=== PATIENT | female | born 1970 | race Caucasian/White ===

== ENCOUNTER → 2019-10-10 10:51 | Outpatient (CLI) | payer BC, SELFPAY ==
[2019-10-10 10:50] VITALS: BMI 21.6
--- NOTE | 2019-10-10 10:56 | RAD_ITS ---
STUDY: X-RAY - RIGHT ANKLE REASON FOR EXAM: Ankle pain. TECHNIQUE: 3 view(s) of the ankle. COMPARISON: None. FINDINGS: Normal visualized distal tibia and fibula. Normal medial and lateral malleoli. There is a subtle radiolucency in the medial talar dome. Normal visualized talus and calcaneus. There is a type II accessory navicular. The visualized subtalar, talonavicular, calcaneocuboid and tarsal articulations are normal. The soft tissue structures are unremarkable. RAD/Ankle min 3 Views IMPRESSION: Subtle radiolucency in the medial talar dome, a possible osteochondral lesion. Electronically Signed: Vj Newby MD at 12:13 EDT Tel , Service support ,
== END ==
PROVIDERS: PCP Obstetrics & Gynecology; Referring Provider Orthopaedic Surgery; Visit Provider Orthopaedic Surgery
DX: M25.571 Pain in right ankle and joints of right foot (principal)
CPT/HCPCS: 73610

== ENCOUNTER → 2019-12-10 15:25 | Outpatient (CLI) | payer BC, SELFPAY ==
[2019-10-10 10:50] VITALS: BMI 21.6
--- NOTE | 2019-12-10 15:25 | RAD_ITS ---
STUDY: X-RAY - RIGHT HAND REASON FOR EXAM: Right hand pain. TECHNIQUE: 3 view(s) of the hand. COMPARISON: None. FINDINGS: Normal radiocarpal articulation. Normal distal radioulnar joint. There is a small cyst in the mid scaphoid. Normal carpal articulations Normal carpometacarpal articulation of the thumb. Normal second through fifth carpometacarpal joints. Normal metacarpi. Normal metacarpophalangeal joint of the thumb. Normal interphalangeal joint of the thumb. Normal proximal and distal phalanges of the thumb. Normal metacarpophalangeal joints of the second through fifth fingers. Normal proximal and distal interphalangeal joints of the second through fifth fingers. Normal phalanges of the second through fifth fingers. There is a very small soft tissue calcification adjacent to the radial styloid process. RAD/Hand Min 3 Views IMPRESSION: Small cyst in the scaphoid. Very small soft tissue calcification adjacent to the radial styloid process. Electronically Signed: Vj Newby MD at 8:44 EDT Tel , Service support ,
== END ==
PROVIDERS: PCP Obstetrics & Gynecology; Referring Provider Orthopaedic Surgery; Visit Provider Orthopaedic Surgery
DX: M79.641 Pain in right hand (principal)
CPT/HCPCS: 73130

== ENCOUNTER → 2021-09-28 | Outpatient (CLI) | payer BC, SELFPAY ==
[2021-10-01 16:44] LABS: HPV APTIMA, High Risk Negative (Negative)
== END | disposition home or self-care (01) ==
LOC: LABSPEC 16:10
PROVIDERS: Visit Provider Student in an Organized Health Care Education/Training Program
DX: Z12.4 Encounter for screening for malignant neoplasm of cervix (principal)
CPT/HCPCS: 87624; 88175; G0145